=== PATIENT | male | born 1965 | race Native Hawaiian/Other Pacific Islander ===

== ENCOUNTER 2018-03-22 15:48 | Emergency (ER) | payer OTHER ==
[~2018-03-22] VITALS: Ht 185.4 cm; Wt 68.0 kg
[~2018-03-22 15:48] MED LIST: BUPR1SUBFM PO
[2018-03-22 15:50] VITALS: TEMP 97.7
[2018-03-22 17:05] LABS: POTASSIUM 4.3 mmol/L (3.6-5.2)
[2018-03-22 17:11] LABS: PLATELET COUNT 276 K/uL (142-355)
[2018-03-22 17:30] VITALS: BP 128/78
== END 2018-03-22 18:00 | disposition home or self-care (01) ==
LOC: ED 15:48
PROVIDERS: Family Medicine
DX: J01.90 Acute sinusitis, unspecified (principal); J20.9 Acute bronchitis, unspecified; R51 Headache
CPT/HCPCS: 36415; 80053; 85027; 93005; 94664; 96374; 99284; J2930

== ENCOUNTER 2018-11-03 12:47 | Emergency (ER) | payer OTHER ==
[~2018-11-03] VITALS: Ht 185.4 cm; Wt 63.5 kg
[2018-11-03 13:00] VITALS: BP 108/62; TEMP 98
== END 2018-11-03 14:35 | disposition home or self-care (01) ==
LOC: ED 12:47
DX: M79.604 Pain in right leg (principal); S80.11XA Contusion of right lower leg, initial encounter
CPT/HCPCS: 99283

== ENCOUNTER 2021-08-27 08:20 | Emergency (ER) | payer OTHER ==
[~2021-08-27] VITALS: Ht 185.4 cm; Wt 68.0 kg
[2021-08-27 08:29] VITALS: TEMP 97
[2021-08-27 09:12] LABS: POTASSIUM 4.2 mmol/L (3.6-5.2)
[2021-08-27 09:48] LABS: PLATELET COUNT 345 K/uL (142-355)
[2021-08-27 11:25] VITALS: BP 112/74
== END 2021-08-27 11:26 | disposition home or self-care (01) ==
LOC: ED 08:20
PROVIDERS: Emergency Medicine
DX: J20.9 Acute bronchitis, unspecified (principal); F17.210 Nicotine dependence, cigarettes, uncomplicated
CPT/HCPCS: 80053; 84484; 85027; 85610; 93005; 99283; J1885

== ENCOUNTER 2021-09-26 17:36 | Emergency (ER) | payer OTHER ==
[~2021-09-26] VITALS: Ht 185.4 cm; Wt 68.0 kg
[2021-09-26 17:38] VITALS: BP 119/71; TEMP 98.4
== END 2021-09-26 18:30 | disposition home or self-care (01) ==
LOC: ED 17:36
DX: H60.8X3 Other otitis externa, bilateral (principal); H65.193 Other acute nonsuppurative otitis media, bilateral; F17.210 Nicotine dependence, cigarettes, uncomplicated
CPT/HCPCS: 99281

== ENCOUNTER 2021-11-17 17:44 | Emergency (ER) | payer OTHER ==
[~2021-11-17] VITALS: Ht 185.4 cm; Wt 68.0 kg
[2021-11-17 17:49] VITALS: BP 119/66; TEMP 98
== END 2021-11-17 18:14 | disposition home or self-care (01) ==
LOC: ED 17:44
DX: H92.03 Otalgia, bilateral (principal)
CPT/HCPCS: 99281

== ENCOUNTER 2022-07-10 03:22 | Emergency (ER) | payer OTHER ==
[~2022-07-10] VITALS: Ht 185.4 cm; Wt 68.0 kg
[2022-07-10 03:30] VITALS: BP 110/65; TEMP 98.8
== END 2022-07-10 04:10 | disposition home or self-care (01) ==
LOC: ED 03:22
PROC: 2W2QX4Z Dressing of Right Lower Leg using Bandage (ICD-10-PCS; principal; 2022-07-10)
DX: T24.231A Burn of second degree of right lower leg, initial encounter (principal); T31.0 Burns involving less than 10% of body surface; X06.2XXA Exposure to ignition of other clothing and apparel, initial encounter; Y92.89 Other specified places as the place of occurrence of the external cause
CPT/HCPCS: 99282